=== PATIENT | male | born 1935 | race Caucasian/White ===

== ENCOUNTER 2018-07-14 12:52 | Emergency (ER) | payer MEDICARE ==
[~2018-07-14] VITALS: Ht 177.8 cm; Wt 80.0 kg
[~2018-07-14 12:52] MED LIST: ASPI-496 PO; B CO1TAB14 PO; CHOL200040 PO; GABA300C10 PO; HYDR-3240 PO; KETO1DRO EACHEYE; LEVO75TA5 PO; LIOT5TAB3 PO; MAGN400T7 PO; MULT-717 PO; PRAV10TA2 PO; SUMA100T4 PO; TRAM50TA2 PO
--- NOTE | 2018-07-14 12:53 | NUR ---
CODE 250 CALLED FOR PT IN THE [facility] WHILE GETTING VANCOMYCIN INFUSION. PT COMPLAINS OF INCREASED PAIN AND SWELLING OF RIGHT KNEE. PT HAD A RIGHT TOTAL KNEE ON September. 5 WEEKS AGO HE GOT AN INFECTION OF THAT KNEE AND STARTED GETTING VANCOMYCIN INFUSIONS. PT HAS HAD HIS HAPPEN 4 TIMES PRIOR. PT IS ALERT AND ORIENTED.
--- NOTE | 2018-07-14 13:06 | NUR ---
PA AT BEDSIDE.
[2018-07-14] MEDS ORDERED: ONDANSETRON 2MG/ML, 2ML ONE (13:16)
[2018-07-14] MEDS ORDERED: HYDROmorphone 2 MG/ML, 1ML ONE (13:17)
--- NOTE | 2018-07-14 13:28 | NUR ---
PT TAKEN TO [facility].
[2018-07-14 13:30] LABS: BASOPHILS # (AUTO) 0.02 x10^3/uL (0-0.1); BASOPHILS % (AUTO) 0 % (0-1); EOSINOPHILS # (AUTO) 0.25 x10^3/uL (0-0.4); EOSINOPHILS % (AUTO) 3 % (1-7); LYMPHOCYTES # (AUTO) 1.84 x10^3/uL (1-3.4); LYMPHOCYTES % (AUTO) 19 % (22-44); MD NO; MEAN CORPUSCULAR HEMOGLOBIN 29.6 pg (27.5-34.5); MEAN CORPUSCULAR HGB CONC 32.6 g/dL (33.2-36.2); MEAN CORPUSCULAR VOLUME 90.9 fL (81-97); MEAN PLATELET VOLUME 7.6 fL (7.4-10.4); MONOCYTES # (AUTO) 0.61 x10^3/uL (0.2-0.8); MONOCYTES % (AUTO) 6 % (2-9); NEUTROPHILS # (AUTO) 6.95 x10^3/uL (1.8-6.8); NEUTROPHILS % (AUTO) 72 % (42-75); PLATELET COUNT 235 x10^3/uL (130-400); RED BLOOD COUNT 3.72 x10^6/uL (4.38-5.82); RED CELL DISTRIBUTION WIDTH 15.6 % (9.4-14.8)
[2018-07-14] MEDS ORDERED: HYDROmorphone 1 MG/ML, 1ML IV ONE (13:30)
[2018-07-14] MEDS ORDERED: ONDANSETRON 2MG/ML, 2ML IVPush ONE (13:30)
[2018-07-14 13:42] LABS: ALANINE AMINOTRANSFERASE 22 U/L (12-78); ALBUMIN 3.3 g/dL (3.4-5.0); ANION GAP 7 mmol/L (5-15); CALCIUM 8.7 mg/dL (8.5-10.1); CHLORIDE 112 mmol/L (98-107); CREATININE 0.98 mg/dL (0.7-1.3)
[2018-07-14 13:45] LABS: ALKALINE PHOSPHATASE 89 U/L (45-117); BILIRUBIN,TOTAL 0.4 mg/dL (0.2-1.0); TOTAL PROTEIN 6.2 g/dL (6.4-8.2)
--- NOTE | 2018-07-14 14:12 | NUR ---
pt reports 4/10 pain after dilaudid comfortable at this time
--- NOTE | 2018-07-14 14:13 | NUR ---
PT IS BACK FROM [facility], PT IS TALKING WITH STAFF, RESPIRATIONS EQUAL AND NON LABORED, NAD. PT IS CONNECTED TO THE MONITOR. CALL LIGHT WITHIN REACH.
--- NOTE | 2018-07-14 14:58 | NUR ---
PT IS RESTING IN BED WITH EYES CLOSED, RESPIRATIONS EQUAL AND NON LABORED, NAD. PT IS CONNECTED TO THE MONITOR. CALL LIGHT WITHIN REACH. AT BEDSIDE.
[2018-07-14 15:49] VITALS: BP 149/66
--- NOTE | 2018-07-14 16:11 | NUR ---
Patient given discharge instructions and they have confirmed that they understand the instructions. Patient ambulatory with steady gait.
== END 2018-07-14 16:12 | disposition home or self-care (01) ==
LOC: ED 13:50
DX: T84.093A Other mechanical complication of internal left knee prosthesis, initial encounter (principal); M25.461 Effusion, right knee; Z96.651 Presence of right artificial knee joint; G89.29 Other chronic pain
CPT/HCPCS: 36415; 73564; 80053; 85025; 96374; 96375; 99284; J1170; J2405